=== PATIENT | female | born 1965 | race African-American/Black ===

== ENCOUNTER 2019-01-08 22:42 | Emergency (ER) | payer BC ==
[~2019-01-08] VITALS: Ht 182.9 cm; Wt 61.2 kg
[2019-01-08 22:47] VITALS: BP 174/74; Ht 182.9 cm; Wt 61.2 kg
== END 2019-01-09 03:14 | disposition left against medical advice (07) ==
LOC: ED 22:42
DX: Z53.21 Procedure and treatment not carried out due to patient leaving prior to being seen by health care provider (principal)